=== PATIENT | male | born 1940 | race Caucasian/White ===

== ENCOUNTER 2021-05-11 18:41 | Inpatient (IN) ==
[2021-05-11] MEDS ORDERED: Atropine 0.1 MG/ML 10 ml SYR (1 mg) IV PRN ×2 (21:12→23:46)
[2021-05-11 23:26] LABS: ABS Basophils 0.1 10^3/ul (0-0.2); ABS Eosinophils 0.3 10^3/ul (0-0.6); ABS Monocytes 0.7 10^3/ul (0-0.8); ABS Neutrophils 4.7 10^3/ul (1.5-7.7); Eosinophil % 4.9 %; Hematocrit 24 % (42-52); Hemoglobin 7.9 g/dL (14.0-18.0); Lymphocyte % 14.9 %; Mean Corpuscular HGB Conc 33 g/dL (31-36); Mean Corpuscular Hemoglobin 32 pg (27-31); Mean Corpuscular Volume 99 fL (80-94); Mean Platelet Volume 8.6 fL (7.4-10.4); Nucleated Red Blood Cells % 0.5; Platelet Count 313 10^3/uL (150-450); Red Blood Count 2.46 10^6 /uL (4.18-5.48); Red Cell Distribution Width 17 % (10-15); White Blood Count 6.8 10^3/uL (3.5-10.8)
[2021-05-11 23:41] LABS: Albumin 2.8 g/dL (3.2-5.2); Calcium 7.3 mg/dL (8.6-10.3); Globulin 2.9 g/dL (2-4); Magnesium 1.7 mg/dL (1.9-2.7); Potassium 3.9 mmol/L (3.5-5.0); Total Bilirubin 0.3 mg/dL (0.2-1.0); Total Protein 5.7 g/dL (6.4-8.9); eGFR CKD-EPI 5.3 (>60)
[2021-05-11] MEDS ORDERED: Heparin 5000 UNITS/ML 1 mL VIAL SUBCUT SCH (23:45)
[2021-05-11] MEDS ORDERED: Magnesium Sulfate IV 1GM/100ML 1 GM/100 ML BAG IV ONE (23:45)
[2021-05-12] MEDS ORDERED: ceFAZolin VIAL 1 GM in NS 0.9% 50 ML 50 ML IVPB ONE (06:47)
[2021-05-12] MEDS ORDERED: ceFAZolin 1 GM/10 ML flush SYRINGE for pocket flush (cardiology) FLUSH PRN (07:00)
[2021-05-12] MEDS ORDERED: NS 0.9% 1000 ml BAG 1,000 ML IV SCH (07:00)
[2021-05-12] MEDS ORDERED: ceFAZolin 2 GM in NS PREMIX 2 GM/100 ML BAG IVPB PRN (07:00)
[2021-05-12] MEDS ORDERED: Sodium Bicarb 650 mg (ANTACID) TAB PO SCH (09:00)
[2021-05-12] MEDS ORDERED: Heparin 1,000 UNIT/ML 10 ml (10,000 UNITS) CATHLAB/DIALYSIS DIALYSIS ONE (09:00)
[2021-05-12] MEDS ORDERED: ceFAZolin VIAL 1 GM in NS *SYRINGE* 10 ML IVPB ONE (11:00)
[2021-05-12] MEDS ORDERED: Midazolam 5 mg/5 ml VIAL 1 mg/ml 5 ml VIAL (5 mg) ONE (12:04)
[2021-05-12] MEDS ORDERED: fentaNYL 100 mcg/2 ml 50 MCG/ML VIAL ONE (12:04)
[2021-05-12] MEDS ORDERED: Lidocaine 1% VIAL 10 MG/ML VIAL ONE (12:05)
[2021-05-12 12:16] LABS: Hepatitis B Surface Antigen Nonreactive (Nonreactive)
[2021-05-12 12:34] LABS: Hepatitis B Surface Ab Immune (Immune)
[2021-05-12 18:57] VITALS: BP 165/82
[2021-05-12] MEDS ORDERED: ANAGRELIDE 0.5 MG PO SCH (21:00)
[2021-05-13] MEDS ORDERED: ceFAZolin 1 GM ADVAN 1 GM in NS 0.9% 50 ML 50 ML IVPB SCH (09:00)
[2021-05-14 14:52] LABS: Calprotectin 63.8 mcg/g
== END 2021-05-12 18:15 | disposition home or self-care (01) | DRG 171 ==
LOC: ICU 20:49
PROVIDERS: ADMIT Specialist; ATTEND Surgery Surgical Critical Care

== ENCOUNTER 2021-05-27 13:01 | Inpatient (IN) ==
[2021-05-27] MEDS ORDERED: Morphine 4 MG/ML VIAL (1 ml) IV ONE (14:20)
[2021-05-27] MEDS ORDERED: oxyCODONE/Acetamin 5/325 mg TAB PO PRN (15:54)
[2021-05-27] MEDS: Heparin DRIP 25,000 UNITS BAG 25,000 UNITS/500 ML BAG IV SCH (21:06)
[2021-05-27] MEDS: Heparin 5000 UNITS/ML 1 mL VIAL IV SCH (21:08)
[2021-05-28 03:13] LABS: ABS Eosinophils 0.6 10^3/ul (0-0.6); ABS Lymphocytes 0.6 10^3/ul (1.0-4.8); ABS Monocytes 0.8 10^3/ul (0-0.8); ABS Neutrophils 9.4 10^3/ul (1.5-7.7); ABS Nucleated RBC 0.1 10^3/ul; Eosinophil % 5.1 %; Hematocrit 30 % (42-52); Hemoglobin 9.8 g/dL (14.0-18.0); Lymphocyte % 5.2 %; Mean Corpuscular HGB Conc 33 g/dL (31-36); Mean Corpuscular Hemoglobin 33 pg (27-31); Mean Corpuscular Volume 100 fL (80-94); Mean Platelet Volume 7.8 fL (7.4-10.4); Nucleated Red Blood Cells % 0.7; Platelet Count 565 10^3/uL (150-450); Red Blood Count 2.99 10^6 /uL (4.18-5.48); Red Cell Distribution Width 18 % (10-15); White Blood Count 11.4 10^3/uL (3.5-10.8)
[2021-05-28 03:31] LABS: Calcium 8.3 mg/dL (8.6-10.3); Potassium 4.1 mmol/L (3.5-5.0); eGFR CKD-EPI 13.2 (>60)
[2021-05-28] MEDS ORDERED: Heparin 1,000 UNIT/ML 10 ml (10,000 UNITS) CATHLAB/DIALYSIS DIALYSIS ONE (08:00)
[2021-05-28] MEDS: Heparin DRIP 25,000 UNITS BAG 25,000 UNITS/500 ML BAG IV SCH ×2 (10:48→18:30)
[2021-05-28] MEDS: Heparin 5000 UNITS/ML 1 mL VIAL IV SCH (10:48)
[2021-05-28] MEDS ORDERED: Polyethylene Glycol 3350 17 GM PACKET PO PRN (12:04)
[2021-05-28] MEDS ORDERED: Warfarin per PHARMACY **NOTE FOLLOW UP SCH (20:00)
[2021-05-28 22:19] LABS: INR 1.16 (0.86-1.15)
[2021-05-29 07:47] LABS: ABS Eosinophils 0.6 10^3/ul (0-0.6); ABS Lymphocytes 0.7 10^3/ul (1.0-4.8); ABS Monocytes 1.2 10^3/ul (0-0.8); ABS Neutrophils 9.5 10^3/ul (1.5-7.7); ABS Nucleated RBC 0.1 10^3/ul; Hematocrit 29 % (42-52); Hemoglobin 9.5 g/dL (14.0-18.0); Lymphocyte % 5.9 %; Mean Corpuscular HGB Conc 33 g/dL (31-36); Mean Corpuscular Hemoglobin 33 pg (27-31); Mean Corpuscular Volume 99 fL (80-94); Mean Platelet Volume 8.7 fL (7.4-10.4); Nucleated Red Blood Cells % 0.4; Platelet Count 562 10^3/uL (150-450); Red Cell Distribution Width 18 % (10-15); White Blood Count 12.1 10^3/uL (3.5-10.8)
[2021-05-29 07:54] LABS: Activated Partial Thrombo Time 56.5 seconds (26.0-38.0); INR 1.2 (0.86-1.15)
[2021-05-29] MEDS ORDERED: Heparin 1,000 UNIT/ML 10 ml (10,000 UNITS) CATHLAB/DIALYSIS DIALYSIS ONE ×2 (08:00→17:00)
[2021-05-29] MEDS: Heparin DRIP 25,000 UNITS BAG 25,000 UNITS/500 ML BAG IV SCH (13:52)
[2021-05-29] MEDS: Warfarin DAILY REMINDER **NOTE FOLLOW UP SCH (18:14)
[2021-05-30 06:08] LABS: ABS Eosinophils 0.6 10^3/ul (0-0.6); ABS Lymphocytes 0.9 10^3/ul (1.0-4.8); ABS Monocytes 1.2 10^3/ul (0-0.8); ABS Neutrophils 7.2 10^3/ul (1.5-7.7); Eosinophil % 5.6 %; Hematocrit 29 % (42-52); Hemoglobin 9.6 g/dL (14.0-18.0); Lymphocyte % 8.8 %; Mean Corpuscular HGB Conc 33 g/dL (31-36); Mean Corpuscular Hemoglobin 33 pg (27-31); Mean Corpuscular Volume 100 fL (80-94); Mean Platelet Volume 8.7 fL (7.4-10.4); Nucleated Red Blood Cells % 0.2; Platelet Count 506 10^3/uL (150-450); Red Blood Count 2.89 10^6 /uL (4.18-5.48); Red Cell Distribution Width 17 % (10-15); White Blood Count 9.9 10^3/uL (3.5-10.8)
[2021-05-30 06:19] LABS: Activated Partial Thrombo Time 65.3 seconds (26.0-38.0); INR 2.11 (0.86-1.15)
[2021-05-30 06:22] LABS: Calcium 8.2 mg/dL (8.6-10.3); Potassium 3.8 mmol/L (3.5-5.0)
[2021-05-30] MEDS: Heparin DRIP 25,000 UNITS BAG 25,000 UNITS/500 ML BAG IV SCH (11:26)
[2021-05-30] MEDS: Warfarin DAILY REMINDER **NOTE FOLLOW UP SCH (17:39)
[2021-05-30] MEDS: Polyethylene Glycol 3350 17 GM PACKET PO SCH (19:06)
[2021-05-31 06:10] LABS: ABS Basophils 0.2 10^3/ul (0-0.2); ABS Eosinophils 0.5 10^3/ul (0-0.6); ABS Monocytes 1.2 10^3/ul (0-0.8); ABS Neutrophils 6.3 10^3/ul (1.5-7.7); Eosinophil % 5.7 %; Hematocrit 27 % (42-52); Hemoglobin 9.1 g/dL (14.0-18.0); Lymphocyte % 11.1 %; Mean Corpuscular HGB Conc 34 g/dL (31-36); Mean Corpuscular Hemoglobin 33 pg (27-31); Mean Corpuscular Volume 97 fL (80-94); Platelet Count 531 10^3/uL (150-450); Red Blood Count 2.77 10^6 /uL (4.18-5.48); Red Cell Distribution Width 17 % (10-15); White Blood Count 9.2 10^3/uL (3.5-10.8)
[2021-05-31 06:37] LABS: Activated Partial Thrombo Time 76.3 seconds (26.0-38.0); INR 4.05 (0.86-1.15)
[2021-05-31] MEDS: Heparin DRIP 25,000 UNITS BAG 25,000 UNITS/500 ML BAG IV SCH (07:48)
[2021-05-31] MEDS: Polyethylene Glycol 3350 17 GM PACKET PO SCH (08:44)
[2021-05-31] MEDS ORDERED: Warfarin - No Order Today **NOTE FOLLOW UP ONE (17:00)
[2021-05-31] MEDS: Warfarin DAILY REMINDER **NOTE FOLLOW UP SCH (20:02)
[2021-06-01] MEDS: Heparin DRIP 25,000 UNITS BAG 25,000 UNITS/500 ML BAG IV SCH (03:15)
[2021-06-01] MEDS ORDERED: Heparin 1,000 UNIT/ML 10 ml (10,000 UNITS) CATHLAB/DIALYSIS DIALYSIS PRN (07:12)
[2021-06-01 07:36] LABS: ABS Basophils 0.1 10^3/ul (0-0.2); ABS Eosinophils 0.5 10^3/ul (0-0.6); ABS Lymphocytes 1.4 10^3/ul (1.0-4.8); ABS Monocytes 1.2 10^3/ul (0-0.8); ABS Neutrophils 5.5 10^3/ul (1.5-7.7); Hematocrit 27 % (42-52); Hemoglobin 9.1 g/dL (14.0-18.0); Lymphocyte % 16.1 %; Mean Corpuscular HGB Conc 34 g/dL (31-36); Mean Corpuscular Hemoglobin 33 pg (27-31); Mean Corpuscular Volume 98 fL (80-94); Mean Platelet Volume 8.1 fL (7.4-10.4); Platelet Count 556 10^3/uL (150-450); Red Blood Count 2.77 10^6 /uL (4.18-5.48); Red Cell Distribution Width 17 % (10-15); White Blood Count 8.8 10^3/uL (3.5-10.8)
[2021-06-01 07:54] LABS: Potassium 4.1 mmol/L (3.5-5.0); eGFR CKD-EPI 6.3 (>60)
[2021-06-01 07:56] LABS: Activated Partial Thrombo Time 56.1 seconds (26.0-38.0); INR 2.86 (0.86-1.15)
[2021-06-01] MEDS: Polyethylene Glycol 3350 17 GM PACKET PO SCH (08:18)
[2021-06-01 16:01] VITALS: BP 140/69
[2021-06-01] MEDS: Warfarin DAILY REMINDER **NOTE FOLLOW UP SCH (19:28)
== END 2021-06-01 16:50 | disposition home or self-care (01) | DRG 663 ==
LOC: ED 13:01 → SUATTDRO 15:46 → MED 15:46 → MEDTELE 05-29 15:08
PROVIDERS: ADMIT Student in an Organized Health Care Education/Training Program; ATTEND Hospitalist

== ENCOUNTER 2021-07-16 05:52 | Observation (INO) ==
[2021-07-16] MEDS ORDERED: Lactated Ringers 1000 ml BAG 1,000 ML IV SCH (06:00)
[2021-07-16] MEDS ORDERED: Buffered Lidocaine 1% SYRIN 1 ml INTRADERM ONE (06:00)
[2021-07-16] MEDS ORDERED: Bupivacaine 0.5% SDV PF 30ML VIAL ONE (06:40)
[2021-07-16] MEDS ORDERED: fentaNYL 100 mcg/2 ml 50 MCG/ML VIAL ONE ×2 (06:41→13:53)
[2021-07-16] MEDS ORDERED: Dexamethasone IV 4 MG/ML VIAL 1 ml VIAL ONE ×2 (06:41→14:17)
[2021-07-16] MEDS ORDERED: Lidocaine 2% PF 5 ML VIAL ONE ×2 (06:41→13:53)
[2021-07-16] MEDS ORDERED: Lidocaine 1% VIAL 10 MG/ML VIAL ONE (06:59)
[2021-07-16] MEDS ORDERED: Heparin 5000 UNITS/ML 1 mL VIAL ONE (06:59)
[2021-07-16] MEDS ORDERED: Bupivacaine 0.25% SDV PF 10 ML VIAL INJ ONE (06:59)
[2021-07-16] MEDS ORDERED: Lidocaine 1% w EPI 1:100,000 MDV 20 ML VIAL ONE ×2 (06:59→13:23)
[2021-07-16] MEDS ORDERED: Heparin 2 UNITS/ML 1000 mls 0 ML IV ONE (06:59)
[2021-07-16] MEDS ORDERED: ceFAZolin 1 GM ADVAN 1 GM ADDV.VIAL IVPB ONE (07:37)
[2021-07-16] MEDS ORDERED: Lidocaine 1% MPF 5 ML VIAL ONE (07:47)
[2021-07-16] MEDS ORDERED: Propofol 10 MG/ML 20 ML BTL ONE ×4 (08:06→13:53)
[2021-07-16] MEDS ORDERED: Acetaminophen IV 1 GM/100ML 100 ML IV ONE (08:13)
[2021-07-16] MEDS ORDERED: Heparin 2 UNITS/ML 1000 mls 1,000 ML IV ONE (13:23)
[2021-07-16] MEDS ORDERED: Succinylcholine 200 mg VIAL 20 mg/ml 10 ml VIAL (200 mg) ONE (13:53)
[2021-07-16] MEDS ORDERED: Phenylephrine 40 mcg/mL 10mL (400mcg) SYRINGE ONE (14:11)
[2021-07-16] MEDS ORDERED: Ondansetron 4 mg VIAL 2 MG/ML 2 ml VIAL ONE (14:17)
[2021-07-17 06:07] LABS: Hematocrit 30 % (42-52); Hemoglobin 9.9 g/dL (14.0-18.0); Mean Corpuscular HGB Conc 33 g/dL (31-36); Mean Corpuscular Hemoglobin 31 pg (27-31); Mean Corpuscular Volume 94 fL (80-94); Mean Platelet Volume 8.7 fL (7.4-10.4); Platelet Count 520 10^3/uL (150-450); Red Blood Count 3.19 10^6 /uL (4.18-5.48); Red Cell Distribution Width 17 % (10-15); White Blood Count 10.8 10^3/uL (3.5-10.8)
[2021-07-17 06:20] LABS: Calcium 8.6 mg/dL (8.6-10.3); Potassium 4.9 mmol/L (3.5-5.0); eGFR CKD-EPI 6.7 (>60)
[2021-07-17 07:57] VITALS: BP 129/70
[2021-07-17] MEDS ORDERED: Senna TAB 8.6 mg TAB PO SCH (09:00)
[2021-07-17] MEDS ORDERED: Polyethylene Glycol 3350 17 GM PACKET PO SCH (09:00)
== END 2021-07-17 09:28 | disposition home or self-care (01) ==
LOC: SSU 05:52 → OR 05:52
PROVIDERS: ADMIT Surgery; ATTEND Surgery
PROC: O.GEAVF (2021-07-16 07:30)